=== PATIENT | female | born 1965 | race Caucasian/White ===

== ENCOUNTER → 2017-01-21 | Outpatient (CLI) | payer OTHER ==
[~2017-01-21] MED LIST: ADVAIR 250/501 EA INH; ADVAIR 500/501 EA INH; ALBUTEROL0.09 MG/A2 IH; ALBUTEROL2.5 MG/0.5 INH; AMOXICILLIN500 MG PO; CARDIZEM120 MG PO; CIPRO500 MG PO; CIPROFLOXACIN500 MG PO; DARVOCET N 1001 TAB PO; DAYPRO600 M1 PO; DOXYCYCLINE HY100 M3 PO; FLEXERIL10 MG PO; KEFLEX500 MG PO; LISINOPRIL5 MG PO; MEDROL DOSEPAK4 MG PO; MOTRIN600 MG PO; MOTRIN800 MG PO; Motrin,Rufen800 MG PO; PEN-VK500 MG PO; PERCOCET 325 MG1 TA2 PO; PERCOCET 325 MG1 TA7 PO; PREDNISONE10 MG PO; PREDNISONE20 MG; ROBAXIN750 MG PO; SEPTRA DS 800 M1 TAB PO; SINGULAIR10 MG PO; TRAMADOL HCL50 MG PO; TRIMOX500 MG PO; VALIUM5 MG PO; VIBRAMYCIN100 MG; VIBRAMYCIN100 MG PO; VICODIN ES 7501 TAB PO; ZANTAC150 MG PO; ZOFRAN ODT4 MG SL; ZYRTEC10 MG PO
[2017-01-21 11:11] LABS: ABG BASE EXCESS 1.5 mmol/L (-2.0-2.0); ABG CO2 CONTENT 25.4 mmol/L (23-27); ABG HCO3 24.4 mmol/l (22-26); ABG TEMPERATURE 98.6 F (98.0-99.0); ARTERIAL BLOOD GAS PH 7.462 (7.35-7.45); ARTERIAL BLOOD GAS PO2 88.4 mmHg (80-90)
== END | disposition home or self-care (01) ==
LOC: LAB 10:27
PROVIDERS: Internal Medicine Critical Care Medicine
DX: J45.40 Moderate persistent asthma, uncomplicated (principal)

== ENCOUNTER 2017-03-18 10:56 | Emergency (ER) | payer OTHER ==
[~2017-03-18] VITALS: Ht 160 cm; Wt 96.2 kg
[2017-03-18] MEDS ORDERED: GOOD NEIGHBOR150 MG PO (11:30)
[2017-03-18] MEDS ORDERED: MONTELUKAST SOD10 MG PO (11:30)
[2017-03-18] MEDS ORDERED: ALL DAY ALLERGY10 MG PO (11:30)
[2017-03-18] MEDS ORDERED: HYDROCHLOROTH12.5 M3 PO (11:30)
[2017-03-18] MEDS ORDERED: NOVAPLUS V0.09 MG/Ac INH (11:32)
[2017-03-18] MEDS ORDERED: AIRDUO RESPICL1 EAC1 INH (11:32)
[2017-03-18] MEDS ORDERED: LIDEX 0.05% CRE15 GM T (11:47)
== END 2017-03-18 12:18 | disposition home or self-care (01) ==
LOC: ED 10:56
DX: L30.9 Dermatitis, unspecified (principal); F17.210 Nicotine dependence, cigarettes, uncomplicated; Z98.51 Tubal ligation status; Z79.899 Other long term (current) drug therapy; Z88.5 Allergy status to narcotic agent

== ENCOUNTER 2017-07-06 16:29 | Emergency (ER) | payer OTHER ==
[~2017-07-06] VITALS: Ht 160 cm; Wt 95.3 kg
[~2017-07-06 16:29] MED LIST changes: +AIRDUO RESPICL1 EAC1 INH; +ALL DAY ALLERGY10 MG PO; +GOOD NEIGHBOR150 MG PO; +HYDROCHLOROTH12.5 M3 PO; +LIDEX 0.05% CRE15 GM T; +MONTELUKAST SOD10 MG PO; +NOVAPLUS V0.09 MG/Ac INH
== END 2017-07-06 17:42 | disposition home or self-care (01) ==
LOC: ED 16:29
DX: J02.9 Acute pharyngitis, unspecified (principal); F17.210 Nicotine dependence, cigarettes, uncomplicated; Z98.51 Tubal ligation status; Z79.899 Other long term (current) drug therapy; Z88.5 Allergy status to narcotic agent

== ENCOUNTER 2017-11-06 07:04 | Emergency (ER) | payer OTHER ==
[2017-11-06] MEDS ORDERED: PREDNISONE50 MG PO (07:25)
[2017-11-06] MEDS ORDERED: DOXYCYCLINE100 MG PO (07:25)
== END 2017-11-06 07:41 | disposition home or self-care (01) ==
LOC: ED 07:04
DX: J20.9 Acute bronchitis, unspecified (principal); J44.9 Chronic obstructive pulmonary disease, unspecified; I10 Essential (primary) hypertension; F17.210 Nicotine dependence, cigarettes, uncomplicated; E66.9 Obesity, unspecified; Z98.51 Tubal ligation status; Z79.899 Other long term (current) drug therapy; Z88.5 Allergy status to narcotic agent

== ENCOUNTER 2019-02-13 21:04 | Emergency (ER) | payer BC ==
[~2019-02-13] VITALS: Ht 160 cm; Wt 88.9 kg
[~2019-02-13 21:04] MED LIST changes: +DOXYCYCLINE100 MG PO; +FLONASE ALLERG9.9 ML NAS; +PREDNISONE50 MG PO
[2019-02-13] MEDS ORDERED: MEDROL DOSEPAK4 MG PO (22:41)
== END 2019-02-13 22:48 | disposition home or self-care (01) ==
LOC: ED 21:04
DX: M54.42 Lumbago with sciatica, left side (principal); J44.9 Chronic obstructive pulmonary disease, unspecified; I10 Essential (primary) hypertension; F17.210 Nicotine dependence, cigarettes, uncomplicated; Z88.6 Allergy status to analgesic agent; Z79.899 Other long term (current) drug therapy

== ENCOUNTER 2019-12-17 10:34 | Emergency (ER) | payer SELFPAY ==
[~2019-12-17] VITALS: Ht 160 cm; Wt 90.3 kg
[2019-12-17] MEDS ORDERED: PERCOCET 5-3251 EACH PO (12:08)
== END 2019-12-17 15:29 | disposition home or self-care (01) ==
LOC: ED 10:34
DX: S82.62XA Displaced fracture of lateral malleolus of left fibula, initial encounter for closed fracture (principal); S93.05XA Dislocation of left ankle joint, initial encounter; S93.422A Sprain of deltoid ligament of left ankle, initial encounter; M79.671 Pain in right foot; I10 Essential (primary) hypertension; J45.909 Unspecified asthma, uncomplicated; F17.210 Nicotine dependence, cigarettes, uncomplicated; Z87.442 Personal history of urinary calculi; Z88.6 Allergy status to analgesic agent; Z79.899 Other long term (current) drug therapy; Z79.2 Long term (current) use of antibiotics; W10.8XXA Fall (on) (from) other stairs and steps, initial encounter; Y93.89 Activity, other specified; Y92.098 Other place in other non-institutional residence as the place of occurrence of the external cause; Y99.8 Other external cause status

== ENCOUNTER → 2019-12-29 | Day surgery (SDC) | payer SELFPAY ==
[2019-12-28 10:55] VITALS: BP 156/84
[2019-12-28 11:39] LABS: BASO % 0.5 % (0.0-1.0); EOS # 0.4 10*3/uL (0.0-0.4); EOS % 4.7 % (1.0-4.0); LYMPH # 1.7 10*3/uL (1.3-4.4); LYMPH % 19.5 % (27.0-41.0); MEAN CORPUSCULAR HGB 32.4 pg (27.0-31.0); MEAN CORPUSCULAR HGB CONC 33.7 g/dl (33.0-37.0); MEAN PLATELET VOLUME 9.6 fl (9.6-12.3); MONO # 0.6 10*3/uL (0.1-1.0); MONO % 7.5 % (3.0-9.0); NEUT # 5.7 10*3/uL (2.3-7.9); NEUT % 67.6 % (47.0-73.0); PLATELET COUNT AUTOMATED 382 10*3/uL (130-400); RED BLOOD COUNT 4.79 10*6/uL (4.10-5.10); RED CELL DISTRI WIDTH 11.9 % (0-14.5); WHITE BLOOD COUNT 8.5 10*3/uL (4.8-10.8)
[2019-12-28 11:55] LABS: ACT PARTIAL THROMBO TIME 27.1 SECONDS (20.0-32.1)
[2019-12-28 12:07] LABS: BUN 20 mg/dl (7-24); CHLORIDE 103 mmol/L (98-107); CREATININE 0.92 mg/dL (0.55-1.02); POTASSIUM 4.1 mmol/L (3.5-5.1); SODIUM 138 mmol/L (136-145)
[~2019-12-29] VITALS: Ht 160 cm; Wt 90.3 kg
[2019-12-29] VITALS (8 sets, daily range): BP systolic 119–136; BP diastolic 57–78
[~2019-12-29] MED LIST changes: +DOXYCYCLINE100 M3 PO; +ECPIRIN325 MG PO; +PERCOCET 5-3251 EACH PO; +SINGULAIR10 M1 PO
== END | disposition home or self-care (01) ==
LOC: SDC 12-28 09:53
PROVIDERS: Podiatrist Foot & Ankle Surgery
DX: S82.842A Displaced bimalleolar fracture of left lower leg, initial encounter for closed fracture (principal); J45.909 Unspecified asthma, uncomplicated; I10 Essential (primary) hypertension; Z83.3 Family history of diabetes mellitus; X58.XXXA Exposure to other specified factors, initial encounter; Y93.89 Activity, other specified; Y92.89 Other specified places as the place of occurrence of the external cause; Y99.8 Other external cause status

== ENCOUNTER 2021-06-08 08:49 | Emergency (ER) | payer BC ==
[2021-06-08] MEDS ORDERED: VENT7GM INH (09:47)
[2021-06-08] MEDS ORDERED: PREDNISONE50 MG PO (09:47)
== END 2021-06-08 10:05 | disposition home or self-care (01) ==
LOC: ED 08:49
DX: J06.9 Acute upper respiratory infection, unspecified (principal); Z20.822 Contact with and (suspected) exposure to COVID-19; J40 Bronchitis, not specified as acute or chronic; F17.210 Nicotine dependence, cigarettes, uncomplicated; Z88.6 Allergy status to analgesic agent; Z79.899 Other long term (current) drug therapy; Z79.2 Long term (current) use of antibiotics; Z79.82 Long term (current) use of aspirin; Z98.61 Coronary angioplasty status

== ENCOUNTER 2022-01-19 21:16 | Emergency (ER) | payer BC ==
[~2022-01-19] VITALS: Ht 160 cm; Wt 95.3 kg
[~2022-01-19 21:16] MED LIST changes: +VENT7GM INH
[2022-01-19] MEDS ORDERED: Ipratropium Brom3 ML INH (21:47)
[2022-01-19] MEDS ORDERED: ZITHROMAX250 MG PO (21:47)
[2022-01-19] MEDS ORDERED: PREDNISONE20 M1 PO (21:47)
[2022-01-19] MEDS ORDERED: PROAIR HFA8.5 GM INH (21:47)
== END 2022-01-19 21:54 | disposition home or self-care (01) ==
LOC: ED 21:16
DX: J45.901 Unspecified asthma with (acute) exacerbation (principal); Z88.8 Allergy status to other drugs, medicaments and biological substances; Z79.899 Other long term (current) drug therapy; Z98.51 Tubal ligation status; Z87.891 Personal history of nicotine dependence

== ENCOUNTER 2022-01-25 09:26 | Emergency (ER) | payer BC ==
[~2022-01-25] VITALS: Wt 95.3 kg
[~2022-01-25 09:26] MED LIST changes: +Ipratropium Brom3 ML INH; +PREDNISONE20 M1 PO; +PROAIR HFA8.5 GM INH; +ZITHROMAX250 MG PO
[2022-01-25 10:11] LABS: BASO % 0.2 % (0.0-1.0); HEMATOCRIT 44.1 % (37.0-47.0); LYMPH # 0.4 10*3/uL (1.3-4.4); LYMPH % 4.1 % (27.0-41.0); MEAN CORPUSCULAR HGB 31.6 pg (27.0-31.0); MEAN PLATELET VOLUME 10.1 fl (9.6-12.3); MONO # 0.5 10*3/uL (0.1-1.0); MONO % 5.5 % (3.0-9.0); PLATELET COUNT AUTOMATED 280 10*3/uL (130-400); RED BLOOD COUNT 4.74 10*6/uL (4.10-5.10); RED CELL DISTRI WIDTH 12.4 % (0-14.5)
[2022-01-25 10:21] LABS: ACT PARTIAL THROMBO TIME 28.2 SECONDS (20.0-32.1)
[2022-01-25 10:29] LABS: ALKALINE PHOSPHATASE 106 U/L (45-117); BUN 18 mg/dl (7-24); CHLORIDE 108 mmol/L (98-107); CREATININE 1.04 mg/dL (0.55-1.02); POTASSIUM 3.9 mmol/L (3.5-5.1); SGOT/AST 11 IU/L (3-35); SGPT/ALT 29 U/L (12-78); SODIUM 139 mmol/L (136-145); TOTAL PROTEIN 7.1 gm/dL (6.4-8.2)
[2022-01-25] MEDS ORDERED: PREDNISONE50 MG PO (13:01)
== END 2022-01-25 13:06 | disposition home or self-care (01) ==
LOC: ED 09:26
PROVIDERS: Emergency Medicine
DX: J45.901 Unspecified asthma with (acute) exacerbation (principal); J44.9 Chronic obstructive pulmonary disease, unspecified; I10 Essential (primary) hypertension; Z88.8 Allergy status to other drugs, medicaments and biological substances; Z98.51 Tubal ligation status; Z87.891 Personal history of nicotine dependence

== ENCOUNTER 2022-04-01 14:34 | Emergency (ER) | payer BC ==
[~2022-04-01] VITALS: Wt 95.3 kg
[2022-04-01] MEDS ORDERED: ZITHROMAX250 MG PO (15:16)
[2022-04-01] MEDS ORDERED: FLONASE ALLERG9.9 ML NAS (15:16)
== END 2022-04-01 15:28 | disposition home or self-care (01) ==
LOC: ED 14:34
DX: J01.90 Acute sinusitis, unspecified (principal); Z88.8 Allergy status to other drugs, medicaments and biological substances; Z98.51 Tubal ligation status; Z87.891 Personal history of nicotine dependence

== ENCOUNTER 2023-08-10 08:44 | Emergency (ER) | payer BC ==
[~2023-08-10] VITALS: Wt 95.3 kg
[2023-08-10 09:43] LABS: BASO % 0.6 % (0.0-1.0); EOS # 0.3 10*3/uL (0.0-0.4); EOS % 4.7 % (1.0-4.0); HEMATOCRIT 46.5 % (37.0-47.0); LYMPH # 1.8 10*3/uL (1.3-4.4); LYMPH % 26.7 % (27.0-41.0); MEAN CELL VOLUME 94.5 fl (81.0-99.0); MEAN CORPUSCULAR HGB 31.9 pg (27.0-31.0); MEAN CORPUSCULAR HGB CONC 33.8 g/dl (33.0-37.0); MEAN PLATELET VOLUME 9.6 fl (9.6-12.3); MONO # 0.5 10*3/uL (0.1-1.0); MONO % 6.8 % (3.0-9.0); NEUT # 4.1 10*3/uL (2.3-7.9); NEUT % 60.9 % (47.0-73.0); PLATELET COUNT AUTOMATED 325 10*3/uL (130-400); RED BLOOD COUNT 4.92 10*6/uL (4.10-5.10); WHITE BLOOD COUNT 6.7 10*3/uL (4.8-10.8)
[2023-08-10 09:55] LABS: ACT PARTIAL THROMBO TIME 30.7 SECONDS (20.0-32.1)
[2023-08-10 10:06] LABS: ALKALINE PHOSPHATASE 91 U/L (46-116); BUN 13 mg/dl (9-23); CHLORIDE 105 mmol/L (98-107); LIPASE 38 U/L (12-53); POTASSIUM 4.3 mmol/L (3.4-5.1); SGPT/ALT 17 U/L (5-49); TOTAL PROTEIN 7.5 gm/dL (6.0-8.0)
[2023-08-10] MEDS ORDERED: PREDNISONE50 MG PO (12:24)
== END 2023-08-10 12:45 | disposition home or self-care (01) ==
LOC: ED 08:44
PROVIDERS: Emergency Medicine
DX: M79.631 Pain in right forearm (principal); M25.521 Pain in right elbow; K08.89 Other specified disorders of teeth and supporting structures; J45.909 Unspecified asthma, uncomplicated; I10 Essential (primary) hypertension; Z88.8 Allergy status to other drugs, medicaments and biological substances; Z98.51 Tubal ligation status; F17.210 Nicotine dependence, cigarettes, uncomplicated

== ENCOUNTER 2024-04-14 19:21 | Emergency (ER) | payer BC ==
[~2024-04-14] VITALS: Ht 160 cm; Wt 98.0 kg
[2024-04-14] MEDS ORDERED: methylPREDNISolone sod succ 125 MG VIAL IM ONE (19:50)
[2024-04-15] MEDS ORDERED: PREDNISONE20 M1 PO (12:29)
== END 2024-04-14 20:02 | disposition home or self-care (01) ==
LOC: ED 19:21
DX: M54.41 Lumbago with sciatica, right side (principal); M79.604 Pain in right leg; J45.909 Unspecified asthma, uncomplicated; I10 Essential (primary) hypertension; Z87.442 Personal history of urinary calculi; F17.210 Nicotine dependence, cigarettes, uncomplicated; Z88.8 Allergy status to other drugs, medicaments and biological substances; Z98.51 Tubal ligation status

== ENCOUNTER → 2024-10-10 | Outpatient (CLI) | payer BC ==
[2024-10-10 10:10] LABS: BILIRUBIN Negative (Negative); BLOOD 2+ (Negative); CLARITY Cloudy (Clear); COLOR Yellow (Yellow); GLUCOSE Negative (Negative); KETONE Negative (Negative); LEUKO ESTERASE Negative (Negative); NITRITE Negative (Negative); PH 5.5 (4.5-8.0); SPECIFIC GRAVITY 1.025 (1.001-1.030); UROBILINOGEN 0.2 E.U./dl (0.0-1.0)
[2024-10-10 10:18] LABS: BASO # 0.1 10*3/uL (0.0-0.1); BASO % 0.6 % (0.0-1.0); EOS # 0.4 10*3/uL (0.0-0.4); EOS % 4.2 % (1.0-4.0); HEMATOCRIT 45.9 % (37.0-47.0); MEAN CELL VOLUME 92.4 fl (81.0-99.0); MEAN CORPUSCULAR HGB 31.2 pg (27.0-31.0); MEAN CORPUSCULAR HGB CONC 33.8 g/dl (33.0-37.0); MEAN PLATELET VOLUME 10.2 fl (9.6-12.3); MONO # 0.6 10*3/uL (0.1-1.0); MONO % 7.7 % (3.0-9.0); NEUT # 5.5 10*3/uL (2.3-7.9); NEUT % 65.8 % (47.0-73.0); PLATELET COUNT AUTOMATED 291 10*3/uL (130-400); RED BLOOD COUNT 4.97 10*6/uL (4.10-5.10); RED CELL DISTRI WIDTH 12.1 % (0-14.5); WHITE BLOOD COUNT 8.3 10*3/uL (4.8-10.8)
[2024-10-10 10:40] LABS: ALKALINE PHOSPHATASE 83 U/L (46-116); BUN 23 mg/dl (9-23); CHLORIDE 104 mmol/L (98-107); SGPT/ALT 14 U/L (5-49); TOTAL PROTEIN 7.2 gm/dL (6.0-8.0)
== END | disposition home or self-care (01) ==
LOC: LAB 09:43
PROVIDERS: ATTEND Urology
DX: R31.9 Hematuria, unspecified (principal)

== ENCOUNTER → 2024-10-11 | Outpatient (CLI) | payer BC ==
[~2024-10-11] MED LIST changes: +IOHEXOL 350 MG/ML 100 ML VIAL IV ONE
== END | disposition home or self-care (01) ==
LOC: CT 00:31
PROVIDERS: ATTEND Urology
DX: K76.89 Other specified diseases of liver (principal); K57.32 Diverticulitis of large intestine without perforation or abscess without bleeding; R31.9 Hematuria, unspecified; N28.1 Cyst of kidney, acquired

== ENCOUNTER 2025-02-13 08:32 | Emergency (ER) | payer BC ==
[~2025-02-13] VITALS: Ht 160 cm; Wt 93.0 kg
[~2025-02-13 08:32] MED LIST changes: -IOHEXOL 350 MG/ML 100 ML VIAL IV ONE
[2025-02-13] MEDS ORDERED: ZEPBOUND10 MG/0.5 SQ (08:40)
[2025-02-13] MEDS ORDERED: FAMOTIDINE20 M1 PO (08:40)
[2025-02-13 09:08] LABS: BASO % 0.3 % (0.0-1.0); EOS # 0.4 10*3/uL (0.0-0.4); EOS % 3.7 % (1.0-4.0); HEMATOCRIT 44.4 % (37.0-47.0); MEAN CELL VOLUME 92.7 fl (81.0-99.0); MEAN CORPUSCULAR HGB 31.1 pg (27.0-31.0); MEAN CORPUSCULAR HGB CONC 33.6 g/dl (33.0-37.0); MEAN PLATELET VOLUME 9.8 fl (9.6-12.3); MONO # 0.5 10*3/uL (0.1-1.0); MONO % 4.7 % (3.0-9.0); NEUT # 7.1 10*3/uL (2.3-7.9); NEUT % 69.7 % (47.0-73.0); PLATELET COUNT AUTOMATED 300 10*3/uL (130-400); RED BLOOD COUNT 4.79 10*6/uL (4.10-5.10); RED CELL DISTRI WIDTH 11.9 % (0-14.5); WHITE BLOOD COUNT 10.2 10*3/uL (4.8-10.8)
[2025-02-13 09:30] LABS: ALKALINE PHOSPHATASE 79 U/L (46-116); BUN 23 mg/dl (9-23); CHLORIDE 106 mmol/L (98-107); LIPASE 33 U/L (12-53); POTASSIUM 3.7 mmol/L (3.4-5.1); SGPT/ALT 17 U/L (5-49); TOTAL PROTEIN 7.1 gm/dL (6.0-8.0)
[2025-02-13] MEDS ORDERED: traMADol Hydrochloride 50 MG TAB PO ONE (10:50)
[2025-02-13] MEDS ORDERED: TRAMADOL HCL50 MG PO (10:52)
== END 2025-02-13 11:02 | disposition home or self-care (01) ==
LOC: ED 08:32
PROVIDERS: Internal Medicine
DX: R07.81 Pleurodynia (principal); I10 Essential (primary) hypertension; J45.909 Unspecified asthma, uncomplicated; Z79.899 Other long term (current) drug therapy; Z88.5 Allergy status to narcotic agent; Z98.51 Tubal ligation status